=== PATIENT | female | born 2000 | race Two or more races ===

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

== ENCOUNTER 2021-06-16 11:20 | Day surgery (SDC) | payer OTHER | END 2021-06-16 16:05 | disposition home or self-care (01) | LOC: AMB-ENDOS 11:20 | PROVIDERS: ATTEND Surgery | DX: K52.89 Other specified noninfective gastroenteritis and colitis (principal) ==

== ENCOUNTER 2022-04-25 11:46 | Outpatient (CLI) | payer OTHER | END 2022-04-25 11:58 | disposition home or self-care (01) | LOC: RAD 11:46 | PROVIDERS: ATTEND Pediatrics | DX: M99.01 Segmental and somatic dysfunction of cervical region (principal); M99.02 Segmental and somatic dysfunction of thoracic region; M99.03 Segmental and somatic dysfunction of lumbar region; M99.04 Segmental and somatic dysfunction of sacral region; M99.05 Segmental and somatic dysfunction of pelvic region; J18.9 Pneumonia, unspecified organism ==

== ENCOUNTER 2023-03-16 08:16 | Outpatient (CLI) | payer OTHER | END 2023-03-16 08:29 | disposition home or self-care (01) | LOC: SONOGRAMA 08:16 | PROVIDERS: ATTEND Obstetrics & Gynecology Gynecology | DX: N80.102 Endometriosis of left ovary, unspecified depth (principal) ==

== ENCOUNTER → 2023-05-11 | Outpatient (CLI) | payer OTHER | END | disposition home or self-care (01) | LOC: RAD 13:05 | PROVIDERS: ATTEND Chiropractor | DX: M54.2 Cervicalgia (principal); M54.6 Pain in thoracic spine; M54.50 Low back pain, unspecified ==

== ENCOUNTER 2024-05-19 13:12 | Outpatient (CLI) | payer OTHER | END 2024-05-19 13:19 | disposition home or self-care (01) | LOC: SONOGRAMA 13:12 | PROVIDERS: ATTEND Internal Medicine | DX: E04.1 Nontoxic single thyroid nodule (principal) ==

== ENCOUNTER 2024-10-27 07:25 | Outpatient (CLI) | payer OTHER | END 2024-10-27 07:35 | disposition home or self-care (01) | LOC: SONOGRAMA 07:25 | PROVIDERS: ATTEND Pediatrics | DX: R10.13 Epigastric pain (principal); R74.9 Abnormal serum enzyme level, unspecified ==